=== PATIENT | male | born 1965 | race Caucasian/White ===

== ENCOUNTER 2021-02-12 21:33 | Emergency (ER) | payer OTHER, SELFPAY ==
[2021-02-12 21:56] VITALS: BP 169/96; PULSE 75; RESP 18; TEMP 36.7; O2SAT 96; BMI 25.0
--- NOTE | 2021-02-12 23:14 | PC.NURSE ---
ATTEMPTED TO CALL PATIENT INTO [facility]. PT NOT IN WAITING ROOM
--- NOTE | 2021-02-12 23:38 | ED.DENTAL ---
HPI - Dental/Oral General Chief complaint: Dental/Oral Stated complaint: DENTAL PAIN Time Seen by Provider: 02/12/21 23:25 Source: patient Mode of arrival: ambulatory Limitations: no limitations History of Present Illness HPI Narrative: Patient had dental extraction for carried tooth yesterday complaining of swelling of the right cheek with increased pain no fever or chills Complaint: tooth pain Teeth map: 1. Related Data Previous Rx's Medication Instructions Recorded amoxicillin 875 mg-potassium 1 tab PO BID #20 tab 02/12/21 clavulanate 125 mg tablet (Augmentin) tramadol 50 mg tablet 50 mg PO Q6H PRN #20 tab 02/12/21 Allergies Allergy/AdvReac Type Severity Reaction Status Date / Time No Known Allergies Allergy Unverified 03/10/20 14:44 Review of Systems Review of Systems: Yes all other systems are reviewed and are negative [facility] Past Medical History Medical History No known health problems Social History Social History Advance Directives: No Advance Directives Information Provided: No Physical Exam Vital Signs: Vital Signs: Last Vital Signs Temp 98.1 F 02/12/21 21:56 Pulse 75 02/12/21 21:56 Resp 18 02/12/21 21:56 BP 169/96 H 02/12/21 21:56 Pulse Ox 96 02/12/21 21:56 Body Mass Index 25.0 Const: General: no acute distress Orientation/consciousness: patient oriented x3 HENMT: Head: Yes normocephalic Face images: 1. Slight swelling of the right mandible Teeth image: 1. Post extracted slight gum swelling no pus discharge Neck: Neck: Yes no lymphadenopathy Resp: Effort & Inspection: normal respiratory effort and able to speak in complete sentences Auscultation: clear to auscultation bilaterally Neuro: General: patient oriented x3 Discharge Plan Discharge Clinical Impression: Dental caries Patient Disposition: Home, Self-Care Instructions: Toothache (ED) Additional Instructions: Take pain medication and antibiotic as advised Follow-up with dentist Prescriptions: New tramadol 50 mg tablet 50 mg PO Q6H PRN (Reason: pain) Qty: 20 RF: 0 amoxicillin-pot clavulanate [Augmentin] 875-125 mg tablet 1 tab PO BID Qty: 20 RF: 0
[2021-02-12] MEDS: Amoxicillin/Potassium Clav 875 MG TABLET PO (23:44)
[2021-02-12] MEDS: traMADoL HCL 50 MG TABLET PO (23:44)
== END 2021-02-12 23:52 | disposition home or self-care (01) ==
PROVIDERS: Emergency Provider Internal Medicine
DX: K02.9 Dental caries, unspecified (principal); K08.89 Other specified disorders of teeth and supporting structures; Z79.899 Other long term (current) drug therapy
CPT/HCPCS: 99283